=== PATIENT | female | born 1985 | race Caucasian/White ===

== ENCOUNTER 2021-09-24 23:16 | Emergency (ER) | payer MEDICAID, SELFPAY ==
[2021-09-24 23:30] VITALS: BP 102/75; PULSE 77; RESP 16; TEMP 36.6; O2SAT 99; BMI 29.4
[2021-09-24 23:48] LABS: Basophils Percent Auto 0.5 % (0.0-3.0); Eosinophils Percent Auto 2.6 % (0.0-7.0); Hematocrit 40.7 % (33.0-51.0); Lymphocytes Percent Auto 18.8 % (20-44); Mean Corpuscular HGB Conc 34 gm/dL (32-36); Mean Corpuscular Hemoglobin 32 pg (26-34); Mean Corpuscular Volume 92 fL (80-100); Monocytes Percent Auto 5.1 % (0.0-11.0); Neutrophils Percent Auto 72.2 % (42.0-72.0); Platelet Count* 335 K/uL (140-440); RDW Coefficient of Variation % 11.7 % (11.5-15.5); Red Blood Count 4.43 m/uL (4.00-5.20); White Blood Count* 12.96 K/uL (4.50-11.00)
[2021-09-24 23:51] LABS: Slide Review Reflex No
[2021-09-24] MEDS: 0.9 % SODIUM CHLORIDE 1000 ml 1,000 ML IV (23:52)
[2021-09-24] MEDS: KETOROLAC 30 MG/ML inj IVP (23:52)
[2021-09-24] MEDS: ONDANSETRON 2 MG/ML inj 4 MG IVP (23:52)
[2021-09-24 23:59] LABS: Albumin* 4.5 g/dL (3.3-5.0); Chloride* 105 mmol/L (96-114)
[2021-09-25] LABS: Potassium* 3.8 mmol/L (3.6-5.1); Sodium* 136 mmol/L (135-149)
--- NOTE | 2021-09-25 | CRLHL7_ITS ---
For Patients: As a result of the Century Cures Act, medical imaging exams and procedure reports are released immediately into your electronic medical record. You may view this report before your referring provider. If you have questions, please contact your health care provider. INDICATION: Right upper quadrant abdominal pain TECHNIQUE: Ultrasound abdomen limited. Sonographic images of the right upper quadrant were obtained using cobian-scale and color Doppler images. COMPARISON: None FINDINGS: Liver: The liver parenchyma is normal in echotexture. Gallbladder: The neck of the gallbladder is not well demonstrated. No gallstones or sludge seen in the contracted lumen. A small isoechoic focus seen near the gallbladder fundus measuring 3 mm which may represent a small gallbladder polyp. The gallbladder wall is normal in appearance. No pericholecystic fluid is present. A sonographic Ventura sign was reported. Common bile duct: 4 mm. No intrahepatic biliary ductal dilatation seen. Pancreas: The visualized portions of the pancreatic head and body are normal in appearance. Right Kidney: 10.6 cm. No hydronephrosis or ureterectasis is seen. Vascular: The visualized abdominal aorta and IVC are unremarkable. The visualized portal vein is patent with normal anterograde flow. IMPRESSION: 1. A small isoechoic focus seen near the gallbladder fundus measuring 3 mm which may represent a small gallbladder polyp. Dictated by Tyler Escudero MD @ 09/25/2021 1:01:47 AM Dictated by: Tyler Escudero MD @ 09/25/2021 01:02:29 (Electronically Signed)
[2021-09-25 00:02] LABS: Amylase* 91 U/L (18-89); Carbon Dioxide* 25 mmol/L (20-32); Creatinine* 0.8 mg/dL (0.5-1.5); Est. Creatinine Clearance* 78.37; Estimated Glomerular Filt Rate 99 ml/min
[2021-09-25 00:03] LABS: Alanine Aminotransferase* 19 U/L (4-35); Alkaline Phosphatase* 61 U/L (40-150); Aspartate Amino Transferase* 28 U/L (12-35); Bilirubin Total* 0.5 mg/dL (0.1-1.5); Blood Urea Nitrogen* 10 mg/dL (5-24); Calcium* 9.3 mg/dL (8.4-10.6); Glucose* 115 mg/dL (60-115); Total Protein* 7.9 g/dL (6.0-8.3)
--- NOTE | 2021-09-25 00:04 | ED.ABDPAIN ---
HPI - Abdominal Pain General Chief Complaint: Abdominal Pain Stated Complaint: Severe abdominal pain, vomiting and diarrhea Time Seen by Provider: 09/24/21 23:35 History of Present Illness HPI narrative: patient is a a 35-year-old woman who comes in with the acute onset Of right upper quadrant pain and nausea and vomiting as well as generalized anorexia. She states symptoms aresevere. She has had no change in her bowel. No chest pain shortness breath orthopnea PND or fever. She has had no similar symptoms previously. she states that she is not . Related Data Home Medications Medication Instructions Recorded Confirmed No Known Home Medications 09/24/21 09/24/21 Allergies Allergy/AdvReac Type Severity Reaction Status Date / Time No Known Drug Allergies Allergy Verified 09/24/21 23:33 Review of Systems Status of ROS Reports: 10 or more systems reviewed and unremarkable except as noted in History and below Exam Narrative: Exam Narrative: EXAM GENERAL: Patient appears comfortable and well. EYES: No scleral icterus. ENT: Tympanic membranes and oropharynx normal. THYROID: no thyroid nodules or thyromegaly. LYMPH: No supraclavicular or cervical lymphadenopathy. SKIN: Visible skin seen during exam normal or with benign process only. EXT: No dependent lower extremity pedal edema. HEART: Regular rate and rhythm with no murmurs, rubs, or gallops. LUNGS: Clear to auscultation bilaterally with no crackles or wheezes. ABD: Tender to palpation the right upper quadrant. Hypoactive bowel sounds throughout. PSYCH: Good eye contact, speech is not pressured. Const: Vital Signs, click to edit/add: Vital Signs - 24 hr 09/24/21 23:30 Temperature 97.9 F Pulse Rate [Left P ulse Oximeter] 77 Respiratory Rate 16 Blood Pressure [Ri ght Upper Arm] 102/75 Pulse Oximetry 99 Course Course Hospital Course: Patient seen and examined. down of the right upper quadrant CBC CMP amylase ordered. Saline 4 mg of Zofran and g of IV Toradol. Reevaluation(s) Reevaluation #1: Ultrasound of the gallbladder upon my review shows a contracted occult signs of acute cholecystitis. Possible polyp. Laboratory study shows leukocytosis patient has received IV hydration Zofran and Toradol and is feeling better pain is down from a 10 to a 4. Time: 00:41 Reevaluation #2: Pts pain much better. CT curriously shows abscence of on of her esure devices and a small ovarian cyst Time: 01:23 Vital Signs Vital signs: Initial Vital Signs Temperature 97.9 F 09/24/21 23:30 Temperature Source Temporal Artery Scan 09/24/21 23:30 Pulse Rate 77 09/24/21 23:30 Pulse Rhythm 09/24/21 23:30 Respiratory Rate 16 09/24/21 23:30 Blood Pressure 102/75 09/24/21 23:30 Blood Pressure Mean 84 09/24/21 23:30 Blood Pressure Position Sitting 09/24/21 23:30 Pulse Oximetry 99 09/24/21 23:30 Oxygen Delivery Method 09/24/21 23:30 Vital Signs Temperature 97.9 F 09/24/21 23:30 Pulse Rate 77 09/24/21 23:30 Respiratory Rate 16 09/24/21 23:30 Blood Pressure 102/75 09/24/21 23:30 Pulse Oximetry 99 09/24/21 23:30 Temperature 97.9 F 09/24/21 23:30 Pulse Rate 77 09/24/21 23:30 Respiratory Rate 16 09/24/21 23:30 Blood Pressure 102/75 09/24/21 23:30 Pulse Oximetry 99 09/24/21 23:30 MDM - Abdominal Pain MDM Narrative Medical decision making narrative: Patient much improved up differential diagnosis includes itis cholecystitis ovarian cyst problems with her device. She is now feeling much better. We have treated her with saline Toradol and Zofran. I have reviewed the results of her her as well as our ultrasound in laboratory studies. I am blood cell count. Lab Data Labs: Lab Results 09/24/21 09/24/21 Range/Units 23:40 23:40 WBC 12.96 H (4.50-11.00) K/uL RBC 4.43 (4.00-5.20) m/uL Hgb 14.0 (12.0-16.0) gm/dL Hct 40.7 (33.0-51.0) % MCV 92 (80-100) fL MCH 32 (26-34) pg MCHC 34 (32-36) gm/dL RDW Coeff of Ricky 11.7 (11.5-15.5) % Plt Count 335 (140-440) K/uL Neut % (Auto) 72.2 H (42.0-72.0) % Lymph % (Auto) 18.8 L (20-44) % [place] % (Auto) 5.1 (0.0-11.0) % Eos % (Auto) 2.6 (0.0-7.0) % Baso % (Auto) 0.5 (0.0-3.0) % Neut # (Auto) 9.40 H (1.7-7.0) K/uL Lymph # (Auto) 2.40 (0.90-2.90) K/uL [place] # (Auto) 0.70 (0.00-0.90) K/UL Eos # (Auto) 0.30 (0.00-0.50) K/uL Baso # (Auto) 0.10 (0.00-0.30) K/uL Abs Immat Gran (auto) 0.10 (0.00-0.30) K/uL Sodium 136 (135-149) mmol/L Potassium 3.8 (3.6-5.1) mmol/L Chloride 105 (96-114) mmol/L Carbon Dioxide 25 (20-32) mmol/L BUN 10 (5-24) mg/dL Creatinine 0.8 (0.5-1.5) mg/dL Estimated Creat Clear 78.37 Estimated GFR 99 ml/min Glucose 115 (60-115) mg/dL Calcium 9.3 (8.4-10.6) mg/dL Total Bilirubin 0.5 (0.1-1.5) mg/dL AST 28 (12-35) U/L ALT 19 (4-35) U/L Alkaline Phosphatase 61 (40-150) U/L Total Protein 7.9 (6.0-8.3) g/dL Albumin 4.5 (3.3-5.0) g/dL Amylase 91 H (18-89) U/L Discharge Plan Discharge Clinical Impression: Abdominal pain Patient Disposition: Home, Self-Care Condition: Stable Instructions: Abdominal Pain (ED) Additional Instructions: Advance diet and activity as tolerated Rest Fluids Tylenol Motrin Follow up with your doctor about Esure device Zofran as needed for vomting Activity Level: No Restrictions Discharge Diet: Regular Prescriptions: No Action No Known Home Medications 0RF Stand Alone Forms: My[facility] Info Instructions
--- NOTE | 2021-09-25 00:37 | CRLHL7_ITS ---
For Patients: As a result of the Century Cures Act, medical imaging exams and procedure reports are released immediately into your electronic medical record. You may view this report before your referring provider. If you have questions, please contact your health care provider. INDICATION: Right upper quadrant abdominal pelvic pain TECHNIQUE: CT Abdomen and pelvis with i.v. contrast. Coronal and sagittal reformats were obtained. CONTRAST: 74 mL Isovue 370 COMPARISON: None FINDINGS: Lower chest: Unremarkable. Liver: Unremarkable. Spleen: Unremarkable. Pancreas: Unremarkable. Gallbladder: Unremarkable. Kidney: Unremarkable. No kidney or ureteral stones or obstruction seen. Adrenal: Unremarkable. Bowel: Unremarkable. The appendix is not identified. Vascular: Unremarkable. Lymph: Unremarkable. Peritoneum: Unremarkable. No pneumoperitoneum is seen. No significant ascites is noted. Pelvis: Left ovarian corpus luteal cyst is present measuring 1.8 cm. Right fallopian occlusive device is visualized but the left is not seen. Soft tissue: Unremarkable. Bone: Unremarkable for age. IMPRESSION: 1. Right fallopian occlusive device is visualized but the left is not seen. Dictated by Tyler Escudero MD @ 09/25/2021 1:09:23 AM Please note that all CT scans at this facility use dose modulation, iterative reconstruction, and/or weight-based dosing when appropriate to reduce radiation dose to as low as reasonably achievable. Dictated by: Tyler Escudero MD @ 09/25/2021 01:09:57 (Electronically Signed)
[2021-09-25 01:34] VITALS: BP 128/71; PULSE 66; RESP 16
== END 2021-09-25 02:15 | disposition home or self-care (01) ==
PROVIDERS: Emergency Provider Internal Medicine
DX: R10.11 Right upper quadrant pain (principal)
CPT/HCPCS: 36415; 74177; 76705; 80053; 82150; 85025; 96374; 96375; 99283; 99284; 99285; J1885; J2405; J7030; Q9967

== ENCOUNTER 2021-09-26 11:31 | Emergency (ER) | payer MEDICAID, SELFPAY ==
[2021-09-26 11:50] VITALS: BP 121/69
[2021-09-26 11:52] VITALS: BP 121/69; PULSE 71; TEMP 36.1; O2SAT 99; BMI 29.4
--- NOTE | 2021-09-26 12:06 | CRLHL7_ITS ---
For Patients: As a result of the Century Cures Act, medical imaging exams and procedure reports are released immediately into your electronic medical record. You may view this report before your referring provider. If you have questions, please contact your health care provider. Indication: Pain Technique: Sonography of the abdomen was performed Comparison: The ultrasound of September 25, 2021 and portions of the CT from September 25, 2021 Findings: The liver is normal in size and configuration without focal mass or biliary ductal dilatation. Echogenicity is normal The common duct measures 3 millimeters which is normal. The gallbladder is contracted but otherwise unremarkable. The gallbladder wall is 2.5 millimeters which is normal. No pericholecystic fluid collection. There is tenderness to transducer palpation in the right upper quadrant. A 4 millimeter fundal gallbladder polyp is identified. The pancreas as visualized appears normal. The right kidney is unremarkable in size and appearance measuring 9.1 x 3.1 x 5.0 centimeters. The aorta and cava as visualized appears normal. Impression: 1. There is tenderness to right upper quadrant transducer palpation. The gallbladder is contracted but of normal wall thickness. There is a 4 millimeter fundal polyp. No indication of acute cholecystitis or common duct obstruction. No pericholecystic fluid or intramural edema. 2. The ultrasound is similar to the prior examination. 3. The etiology of the sonographic Ventura`s sign is not visible by sonography Dictated by Khalif Monae MD @ 09/26/2021 1:24:34 PM (Electronically Signed)
--- NOTE | 2021-09-26 12:10 | ED_ITS ---
HPI - General Adult General Time Seen by Provider: 12:10 Date Seen: 09/26/21 Chief complaint: Abdominal Pain Stated complaint: Nausea, abdominal pain Time Seen by Provider: 09/26/21 11:32 Source: patient Mode of arrival: ambulatory Limitations: no limitations History of Present Illness HPI narrative: The patient is a pleasant 35 white female who was here yesterday for abdominal pain and elevated white count, presents for repeat visit. She was little bit better with Zofran and some Toradol I believe. But the patient reports that she is unable to eat or drink anything without vomiting she has had some looser stool, she had a gallbladder ultrasound was pretty unremarkable and a CT scan abdomen pelvis that showed 1 of her Essure fallopian tube devices was absent on the left, but otherwise no acute pathology. She continues to have abdominal pain nausea, unable to eat or drink without upset stomach. No marked fevers, no rigors, no chills. No dysuria. Denies . Denies chest pain or breathing problem. Denies COVID symptoms. She is on no home medications. Related Data Home Medications Medication Instructions Recorded Confirmed ondansetron 4 mg disintegrating 4 mg PO Q8H 09/26/21 09/26/21 tablet Previous Rx's Medication Instructions Recorded hydrocodone 5 mg-acetaminophen 325 1 tab PO Q6H #14 tab 09/26/21 mg tablet Allergies Allergy/AdvReac Type Severity Reaction Status Date / Time No Known Drug Allergies Allergy Verified 09/24/21 23:33 Review of Systems Status of ROS: Reports: 10 or more systems reviewed and unremarkable except as noted in History and below PFSH PFS Surgical History History of appendectomy Social History Smoking Status: Current some day smoker What tobacco products do you use: cigarettes Do you use any of these nicotine containing products: None Second hand tobacco smoke exposure: No How often do you have a drink containing alcohol: monthly or less How often do you have six or more drinks on one occasion: Less than monthly AUDIT-C Alcohol total score: 2 Non-prescribed substance use: denies use Exam Narrative: Exam Narrative: Objective: Patient is afebrile, vital signs unremarkable General patient is in mild distress and discomfort and not feeling well HEENT is unremarkable no scleral icterus, mouth clear neck is supple Chest is clear heart regular without murmur Abdomen patient has some right upper quadrant tenderness to palpation, after deep palpation she has pain in the right upper quadrant. No palpable mass. No rebound. Bowel sounds hypoactive No lower abdominal pain to palpation, patient is status post appendectomy Extremities are no edema neurologic nonfocal Good peripheral perfusion Skin is warm and dry Const: Vital Signs, click to edit/add: Vital Signs - 24 hr 09/26/21 11:50 09/26/21 11:52 09/26/21 13:30 Temperature 97.0 F L Pulse Rate [Left P ulse Oximeter] 71 73 Blood Pressure [Ri ght Upper Arm] 121/69 121/69 112/77 Pulse Oximetry 99 100 Course Vital Signs Vital signs: Initial Vital Signs Blood Pressure 121/69 09/26/21 11:50 Blood Pressure Mean 86 09/26/21 11:50 Blood Pressure Position Supine 09/26/21 11:50 Vital Signs Blood Pressure 121/69 09/26/21 11:50 Temperature 97.0 F L 09/26/21 11:52 Pulse Rate 73 09/26/21 13:30 Blood Pressure 112/77 09/26/21 13:30 Pulse Oximetry 100 09/26/21 13:30 Medical Decision Making MDM Narrative Medical decision making narrative: The patient presents after 2 days of diffuse abdominal upper pain, specifically targeted to the right upper quadrant, with inability to eat without vomiting or nausea. Had an elevated white blood cell count yesterday. A relatively benign appearing CT scan of the abdomen. Will repeat her ultrasound at this point I suspect she may have biliary colic. Will recheck her labs, IV fluid, IV pain medication and antiemetics. Surgical consult as needed. My suspicion would either be peptic ulcer verses biliary colic and would favor the biliary diagnosis. She has only had coffee today and I think that an ultrasound would be indicated. A to follow up the test yesterday thank you Addendum: Patient's labs are unremarkable, CRP is negative. Ultrasound shows contracted gallbladder but no marked abnormality no thickening no pericolic fluid, no evidence of infection or obstruction, gallbladder polyp noted. She does seem tender over her gallbladder but has no obvious signs of inflammation or infection. I think pain management and surgical followup would be appropriate patient does feel better at this time. She is comfortable this plan return if there is worsening or changes. Light diet low-fat diet recommended Lab Data Labs: Lab Results 09/26/21 09/26/21 09/26/21 Range/Units 12:20 12:25 12:25 WBC 6.26 (4.50-11.00) K/uL RBC 4.31 (4.00-5.20) m/uL Hgb 13.6 (12.0-16.0) gm/dL Hct 40.0 (33.0-51.0) % MCV 93 (80-100) fL MCH 32 (26-34) pg MCHC 34 (32-36) gm/dL RDW Coeff of Ricky 11.7 (11.5-15.5) % Plt Count 295 (140-440) K/uL Neut % (Auto) 67.3 (42.0-72.0) % Lymph % (Auto) 24.9 (20-44) % [place] % (Auto) 4.6 (0.0-11.0) % Eos % (Auto) 2.2 (0.0-7.0) % Baso % (Auto) 0.8 (0.0-3.0) % Neut # (Auto) 4.21 (1.7-7.0) K/uL Lymph # (Auto) 1.56 (0.90-2.90) K/uL [place] # (Auto) 0.30 (0.00-0.90) K/UL Eos # (Auto) 0.14 (0.00-0.50) K/uL Baso # (Auto) 0.05 (0.00-0.30) K/uL Abs Immat Gran (auto) 0.01 (0.00-0.30) K/uL Sodium 138 (135-149) mmol/L Potassium 4.1 (3.6-5.1) mmol/L Chloride 108 (96-114) mmol/L Carbon Dioxide 22 (20-32) mmol/L BUN 10 (5-24) mg/dL Creatinine 0.8 (0.5-1.5) mg/dL Estimated Creat Clear 78.37 Estimated GFR 99 ml/min Glucose 95 (60-115) mg/dL Lactate (0.5-1.9) mmol/L Calcium 9.2 (8.4-10.6) mg/dL Total Bilirubin (0.1-1.5) mg/dL Direct Bilirubin (0.0-0.5) mg/dL AST (12-35) U/L ALT (4-35) U/L Alkaline Phosphatase (40-150) U/L C-Reactive Protein < 0.5 L (0.5-1.0) mg/dL Total Protein (6.0-8.3) g/dL Albumin (3.3-5.0) g/dL Amylase 81 (18-89) U/L HCG, Qual (Negative) SARS-CoV-2 (PCR) Negative SARS-CoV-2 (Negative) 09/26/21 09/26/21 09/26/21 Range/Units 12:25 12:25 12:25 WBC (4.50-11.00) K/uL RBC (4.00-5.20) m/uL Hgb (12.0-16.0) gm/dL Hct (33.0-51.0) % MCV (80-100) fL MCH (26-34) pg MCHC (32-36) gm/dL RDW Coeff of Ricky (11.5-15.5) % Plt Count (140-440) K/uL Neut % (Auto) (42.0-72.0) % Lymph % (Auto) (20-44) % [place] % (Auto) (0.0-11.0) % Eos % (Auto) (0.0-7.0) % Baso % (Auto) (0.0-3.0) % Neut # (Auto) (1.7-7.0) K/uL Lymph # (Auto) (0.90-2.90) K/uL [place] # (Auto) (0.00-0.90) K/UL Eos # (Auto) (0.00-0.50) K/uL Baso # (Auto) (0.00-0.30) K/uL Abs Immat Gran (auto) (0.00-0.30) K/uL Sodium (135-149) mmol/L Potassium (3.6-5.1) mmol/L Chloride (96-114) mmol/L Carbon Dioxide (20-32) mmol/L BUN (5-24) mg/dL Creatinine (0.5-1.5) mg/dL Estimated Creat Clear Estimated GFR ml/min Glucose (60-115) mg/dL Lactate 1.3 (0.5-1.9) mmol/L Calcium (8.4-10.6) mg/dL Total Bilirubin 0.8 (0.1-1.5) mg/dL Direct Bilirubin 0.2 (0.0-0.5) mg/dL AST 29 (12-35) U/L ALT 18 (4-35) U/L Alkaline Phosphatase 55 (40-150) U/L C-Reactive Protein (0.5-1.0) mg/dL Total Protein 7.7 (6.0-8.3) g/dL Albumin 4.4 (3.3-5.0) g/dL Amylase (18-89) U/L HCG, Qual Negative (Negative) SARS-CoV-2 (PCR) (Negative) Discharge Plan Discharge Clinical Impression: Abdominal pain Patient Disposition: Home w/ Parent or Adult Condition: Improved Additional Instructions: Light diet, surgical appointment as scheduled, [place] as needed, light activity. No driving or alcohol with the medication. Return if problems or concerns Follow up appointment scheduled at the [facility] on 10/01 with a 2:15pm arrival time. Activity Level: Light activity Prescriptions: New hydrocodone-acetaminophen 5-325 mg tablet 1 tab PO Q6H Qty: 14 0RF No Action ondansetron 4 mg tablet,disintegrating 4 mg PO Q8H 0RF Follow Up/Referrals: Provider,Not a Local [Primary Care Provider] - Stand Alone Forms: [facility] Info Instructions
[2021-09-26] MEDS: 0.9 % SODIUM CHLORIDE 1000 ml 1,000 ML 6000 ML IV (12:36)
[2021-09-26] MEDS: ONDANSETRON 2 MG/ML inj 4 MG IVP (12:36)
[2021-09-26] MEDS: MORPHINE 4 MG/ML INJ IVP (12:36)
[2021-09-26 12:48] LABS: Lactate* 1.3 mmol/L (0.5-1.9)
[2021-09-26 12:50] LABS: Basophils Absolute Auto 0.05 K/uL (0.00-0.30); Basophils Percent Auto 0.8 % (0.0-3.0); Eosinophils Absolute Auto 0.14 K/uL (0.00-0.50); Eosinophils Percent Auto 2.2 % (0.0-7.0); Hemoglobin* 13.6 gm/dL (12.0-16.0); Immature Granulocytes Abs Auto 0.01 K/uL (0.00-0.30); Lymphocytes Absolute Auto 1.56 K/uL (0.90-2.90); Lymphocytes Percent Auto 24.9 % (20-44); Mean Corpuscular HGB Conc 34 gm/dL (32-36); Mean Corpuscular Hemoglobin 32 pg (26-34); Mean Corpuscular Volume 93 fL (80-100); Monocytes Percent Auto 4.6 % (0.0-11.0); Neutrophils Absolute Auto 4.21 K/uL (1.7-7.0); Neutrophils Percent Auto 67.3 % (42.0-72.0); Platelet Count* 295 K/uL (140-440); RDW Coefficient of Variation % 11.7 % (11.5-15.5); Red Blood Count 4.31 m/uL (4.00-5.20); White Blood Count* 6.26 K/uL (4.50-11.00)
[2021-09-26 13:07] LABS: Slide Review Reflex No
[2021-09-26 13:13] LABS: Chloride* 108 mmol/L (96-114); Potassium* 4.1 mmol/L (3.6-5.1); Sodium* 138 mmol/L (135-149)
[2021-09-26 13:14] LABS: Albumin* 4.4 g/dL (3.3-5.0)
[2021-09-26 13:16] LABS: Amylase* 81 U/L (18-89); Creatinine* 0.8 mg/dL (0.5-1.5); Est. Creatinine Clearance* 78.37; Estimated Glomerular Filt Rate 99 ml/min
[2021-09-26 13:17] LABS: Aspartate Amino Transferase* 29 U/L (12-35); Bilirubin Direct* 0.2 mg/dL (0.0-0.5); Bilirubin Total* 0.8 mg/dL (0.1-1.5); Blood Urea Nitrogen* 10 mg/dL (5-24); Calcium* 9.2 mg/dL (8.4-10.6); Carbon Dioxide* 22 mmol/L (20-32); Glucose* 95 mg/dL (60-115); Total Protein* 7.7 g/dL (6.0-8.3)
[2021-09-26 13:18] LABS: Alanine Aminotransferase* 18 U/L (4-35); Alkaline Phosphatase* 55 U/L (40-150)
[2021-09-26 13:20] LABS: C Reactive Protein* < 0.5 mg/dL (0.5-1.0)
[2021-09-26 13:22] LABS: HCG Qualitative Serum* Negative (Negative)
[2021-09-26 13:30] VITALS: BP 112/77; PULSE 73; O2SAT 100
[2021-09-26] MEDS: HYDROCODONE/ACETAMIN 7.5-325 TABLET 1 TAB PO (13:49)
[2021-09-26 13:53] LABS: SARS PCR* Negative SARS-CoV-2 (Negative)
== END 2021-09-26 13:55 | disposition home or self-care (01) ==
PROVIDERS: Emergency Provider Family Medicine
DX: R10.9 Unspecified abdominal pain (principal)
CPT/HCPCS: 36415; 76705; 80048; 80076; 82150; 83605; 84703; 85025; 86140; 87635; 96374; 96375; 99284; A9270; J2270; J2405; J7030

== ENCOUNTER 2021-10-02 10:44 | Outpatient (CLI) | payer MEDICAID, SELFPAY ==
--- NOTE | 2021-10-02 11:00 | CRLHL7_ITS ---
For Patients: As a result of the Century Cures Act, medical imaging exams and procedure reports are released immediately into your electronic medical record. You may view this report before your referring provider. If you have questions, please contact your health care provider. INDICATION: 35-year-old female. Right upper quadrant abdominal pain. TECHNIQUE: 5.02 mCi Tc-99m labeled Mebrofenin. 1.46 mcg Kinevac IV. COMPARISON: Correlation is made with a gallbladder ultrasound September 26, [address] of the abdomen and pelvis September 25, 2021. FINDINGS: Normal uptake and excretion of tracer by the liver. Activity is identified promptly within the gallbladder within 5 minutes after injection. The gallbladder continues to fill up to 1 hour. No cystic duct or common duct obstruction. No biliary leak. After the administration of Kinevac, the gallbladder ejection fraction is calculated at 83 percent which is within normal limits. These findings were discussed briefly with Dr. Altagracia Hendrix at 3 p.m. on October 02, 2021. IMPRESSION: 1. Normal HIDA scan. 2. Normal gallbladder ejection fraction. Dictated by Last Shaver MD @ 10/02/2021 3:07:36 PM (Electronically Signed)
== END 2021-10-02 10:45 | disposition home or self-care (01) ==
LOC: NM 10:45
PROVIDERS: Visit Provider Surgery
DX: R10.11 Right upper quadrant pain (principal)
CPT/HCPCS: 78227; A9537; J2805

== ENCOUNTER 2021-10-19 08:01 | Outpatient (CLI) | payer MEDICAID, SELFPAY ==
--- NOTE | 2021-10-19 08:56 | W.ANESCHARGE ---
Anesthesia Charges Start Date/Time Anesthesia Start Date: 10/19/21 Anesthesia Start Time: 08:39 Stop Date/Time Anesthesia Stop Date: 10/19/21 Anesthesia Stop Time: 08:55 Summary Emergency: No
== END 2021-10-19 08:02 | disposition home or self-care (01) ==
LOC: OP CLINIC 08:02
PROVIDERS: PCP Family Medicine; Visit Provider Internal Medicine
DX: R19.8 Other specified symptoms and signs involving the digestive system and abdomen (principal)
CPT/HCPCS: 00731; 43239; 88305; J2704